=== PATIENT | male | born 1970 | race Two or more races ===

== ENCOUNTER 2020-11-12 09:57 | Emergency (ER) | payer OTHER ==
[~2020-11-12] VITALS: Ht 180.3 cm; Wt 72.0 kg
[~2020-11-12 09:57] MED LIST: ANTI-FUNGAL12 TOP; AUGMENTIN875 MG PO; AUGMENTIN875TAB PO; CEPHALEXIN500 MG OR; CIPROFLOXACN500 MG PO; CYCLOBENZAPR10 MG PO; FLONASE NASAL50 MCG; HYDROCHLOROT12.5 M1 OR; HYDROCHLOROT25 MG PO; LEVOTHROID50 MCG OR; LEVOTHROID75 MCG PO; LEVOTHYROXIN; LEVOTHYROXIN125 MC1 PO; LEVOTHYROXIN50 MC1; LEVOTHYROXIN88 MC1 PO; LEVOTHYROXINE75 MCG PO; LISINOP/HCTZ1 TA2 OR; LISINOP/HCTZ1 TAB; LISINOP/HCTZ1 TAB PO; LISINOPRIL5 MG OR; LOSARTAN POT25 MG PO; LOVASTATIN10 M1 PO; METFORMIN; METFORMIN500 MG PO; NAPROSYN500 MG PO; NAPROXEN500 MG PO; NO MEDS; PERCOCET 5/325M1 TAB PO; PRILOSEC40 MG PO; PYRIDIUM200 MG PO; ROBITUSSIN AC10 ML PO; TRAMADOL HCL50 MG PO; TRICOR145 MG PO; VICODIN1 TAB PO; glucometer
[2020-11-12] MEDS ORDERED: LOPID600 MG PO (10:20)
[2020-11-12] MEDS ORDERED: ANUCORT-HC25 MG RE (10:22)
[2020-11-12] MEDS ORDERED: LORTAB 1010 MG PO (10:22)
[2020-11-12] MEDS ORDERED: LIDOCAINE HCL VIS2 % TP (10:22)
[2020-11-12] MEDS ORDERED: OMEPRAZOLE DR40 MG PO (10:24)
[2020-11-12] MEDS ORDERED: PRAVASTATIN SOD20 MG PO (10:25)
[2020-11-12] MEDS ORDERED: FARXIGA10 MG PO (10:26)
[2020-11-12 10:40] VITALS: BP 137/77
== END 2020-11-12 10:40 | disposition home or self-care (01) ==
LOC: ED 09:57
DX: K64.4 Residual hemorrhoidal skin tags (principal); E11.9 Type 2 diabetes mellitus without complications; I10 Essential (primary) hypertension; E78.5 Hyperlipidemia, unspecified; F17.200 Nicotine dependence, unspecified, uncomplicated; Z79.84 Long term (current) use of oral hypoglycemic drugs

== ENCOUNTER 2021-09-17 12:11 | Emergency (ER) | payer OTHER ==
[~2021-09-17] VITALS: Ht 180.3 cm; Wt 85.0 kg
[~2021-09-17 12:11] MED LIST changes: +ANUCORT-HC25 MG RE; +FARXIGA10 MG PO; +LIDOCAINE HCL VIS2 % TP; +LOPID600 MG PO; +LORTAB 1010 MG PO; +OMEPRAZOLE DR40 MG PO; +PRAVASTATIN SOD20 MG PO
[2021-09-17 15:03] VITALS: BP 135/72
== END 2021-09-17 15:18 | disposition home or self-care (01) | DRG 556 ==
LOC: ED 12:11
DX: M79.672 Pain in left foot (principal); E11.9 Type 2 diabetes mellitus without complications; I10 Essential (primary) hypertension; E78.5 Hyperlipidemia, unspecified; F17.200 Nicotine dependence, unspecified, uncomplicated; W18.40XA Slipping, tripping and stumbling without falling, unspecified, initial encounter; Y92.481 Parking lot as the place of occurrence of the external cause; Z79.84 Long term (current) use of oral hypoglycemic drugs